=== PATIENT | female | born 1945 | race Caucasian/White ===

== ENCOUNTER 2017-07-29 05:38 | Inpatient (IN) ==
[2017-07-26 14:47] LABS: Apearance,Urine CLEAR (Clear); Bilirubin,Urine Negative (Negative); Blood, Urine Negative (Negative); Glucose,Urine (UA) Negative (Negative); Hyaline Casts,Urine 12 /LPF (0-3); Ketones,Urine Negative (Negative); Mucus,Urine Occasional /LPF (Occasional); Nitrite,Urine Negative (Negative); Protein,Urine Negative; RBC,Urine 2 /HPF (0-4); Urine Color Yellow (Yellow); Urine Specific Gravity 1.016 (1.001-1.035); Urine Urobilinogen < 2.0 EU/DL (0.2-1.0); WBC,Urine <1 /HPF (0-6)
[2017-07-26 14:51] LABS: PT Patient Result 10.5 SECS; Partial Thromboplastin Time 26.1 SECS (0-40)
[2017-07-29] MEDS ORDERED: VANCOMYCIN 1,000 MG VIAL ONE (05:59)
[2017-07-29] MEDS ORDERED: ceFAZolin 1,000 MG VIAL ONE (05:59)
[2017-07-29] MEDS ORDERED: ceFAZolin 1,000 MG in SYRINGE 1 EACH IV ONE (06:00)
[2017-07-29] MEDS ORDERED: VANCOMYCIN INJ 1,000 MG in SODIUM CHLORIDE 0.9% 250 ML IV ONE (06:00)
[2017-07-29] MEDS ORDERED: DIAZEPAM 5 MG TABLET PO STA (06:26)
[2017-07-29] MEDS ORDERED: DIAZEPAM 5 MG TABLET ONE (06:28)
[2017-07-29] MEDS ORDERED: LACTATED RINGERS 1,000 ML IV SCH (06:30)
[2017-07-29] MEDS ORDERED: BACITRACIN OINT 0.9 GM PACK TOP ONE (06:32)
[2017-07-29] MEDS ORDERED: BUPIVACAINE 0.5% 50 ML VIAL ONE (06:42)
[2017-07-29] MEDS ORDERED: TRANEXAMIC ACID 1,000 MG/10 ML VIAL ONE (06:42)
[2017-07-29] MEDS ORDERED: ROPIVACAINE 0.5% 30 ML VIAL ONE ×2 (08:22→09:23)
[2017-07-29] MEDS ORDERED: tiZANidine 4 MG TABLET PO PRN (08:25)
[2017-07-29] MEDS ORDERED: oxyCODONE IR 5 MG TABLET PO PRN ×2 (08:26)
[2017-07-29] MEDS ORDERED: MAGNESIUM HYDROXIDE SUSP 30 ML UDCUP PO PRN (08:26)
[2017-07-29] MEDS ORDERED: ONDANSETRON 4 MG/2 ML VIAL IV PRN ×2 (08:26→08:52)
[2017-07-29] MEDS ORDERED: MORPHINE 4 MG/1 ML VIAL IV PRN ×2 (08:26)
[2017-07-29] MEDS ORDERED: ZALEPLON 5 MG CAPSULE PO PRN (08:26)
[2017-07-29] MEDS ORDERED: diphenhydrAMINE CAP 25 MG CAPSULE PO PRN (08:26)
[2017-07-29] MEDS ORDERED: MORPHINE 10 MG/1 ML VIAL ONE (08:37)
[2017-07-29] MEDS ORDERED: ONDANSETRON 4 MG/2 ML VIAL ONE (08:37)
[2017-07-29] MEDS: MORPHINE 10 MG/1 ML VIAL IV PRN ×5 (08:40→09:10)
[2017-07-29] MEDS ORDERED: PROPOFOL 200 MG/20 ML VIAL IV ONE (08:54)
[2017-07-29] MEDS ORDERED: fentaNYL 100 MCG/2 ML VIAL ONE (08:55)
[2017-07-29] MEDS ORDERED: SEVOFLURANE 1 UNIT/15 MINUTE INH ONE (08:55)
[2017-07-29] MEDS ORDERED: MIDAZOLAM 2 MG/2 ML VIAL ONE (08:55)
[2017-07-29] MEDS ORDERED: ACETAMINOPHEN 1,000 MG/100 ML VIAL IV ONE (08:56)
[2017-07-29] MEDS ORDERED: GLYCOPYRROLATE 0.4 MG/2 ML VIAL ONE (08:56)
[2017-07-29] MEDS ORDERED: PHENYLEPHRINE 1 MG/10 ML SYRINGE IV ONE (08:56)
[2017-07-29] MEDS: DOCUSATE SODIUM 100 MG CAPSULE PO SCH ×2 (09:00→21:08)
[2017-07-29] MEDS: LACTATED RINGERS 1,000 ML IV SCH ×3 (09:00→23:54)
[2017-07-29] MEDS: KETOROLAC 30 MG/1 ML VIAL IV SCH ×4 (11:32→21:08)
[2017-07-29] MEDS ORDERED: hydrALAZINE 20 MG/1 ML VIAL IV PRN (11:46)
[2017-07-29] MEDS: GABAPENTIN 300 MG CAPSULE PO SCH ×3 (12:15→21:08)
[2017-07-29] MEDS: buPROPion SR 150 MG TABLET PO SCH ×2 (12:17→21:08)
[2017-07-29] MEDS: RALOXIFENE 60 MG TABLET PO SCH (12:17)
[2017-07-29] MEDS: CHOLECALCIFEROL 1,000 UNIT TABLET PO SCH (12:17)
[2017-07-29] MEDS: ACETAMINOPHEN 500 MG TABLET PO SCH ×2 (12:22→18:40)
[2017-07-29] MEDS: ceFAZolin 1,000 MG in SYRINGE 1 EACH IV SCH ×2 (12:22→21:10)
[2017-07-29] MEDS: CYANOCOBALAMIN 500 MCG TABLET PO SCH (17:49)
[2017-07-30] MEDS: ACETAMINOPHEN 500 MG TABLET PO SCH ×2 (00:45→05:32)
[2017-07-30] MEDS: FONDAPARINUX 2.5 MG/0.5 ML SYRINGE SUBCUT SCH (02:30)
[2017-07-30] MEDS: KETOROLAC 30 MG/1 ML VIAL IV SCH (02:30)
[2017-07-30 05:24] LABS: Basophils % 0.5 % (0.0-0.8); Eosinophils # 0.1 10*3/uL (0.0-0.87); Eosinophils % 2.2 % (0.00-10.9); Hematocrit 34.3 VOL% (35.7-47.0); Hemoglobin 11.7 GM/DL (12.0-16.0); Immature Granulocytes % 0.5 %; Immature Granulocytes Absolute 0.03 #; Lymphocytes # 0.7 10*3/uL (1.4-4.0); Lymphocytes % 12.2 % (21.3-54.2); Mean Corpuscular HGB Conc 34.1 GM/DL (32-36); Mean Corpuscular Hemoglobin 31 PG (27-34); Mean Corpuscular Volume 90.5 FL (87-102); Mean Platelet Volume 10.1 FL (9.6-12.0); Monocytes # 0.4 10*3/uL (0.11-0.8); Monocytes % 7.3 % (1.7-12.7); Neutrophils # 4.6 10*3/uL (1.4-7.4); Neutrophils % 77.3 % (38.7-73.9); Platelet Count 172 T/CUMM (130-400); Red Blood Count 3.79 MC/CUMM (3.8-5.5); Red Cell Distribution Width 14.3 % (9.3-17.3); White Blood Count 5.9 T/CUMM (4-12)
[2017-07-30 05:44] LABS: Calcium 7.7 MG/DL (8.5-10.1); Osmolality,Calculated 286.8 MOS/KG (273-304); Potassium 4.1 MMOL/L (3.5-5.1)
[2017-07-30] MEDS: CHOLECALCIFEROL 1,000 UNIT TABLET PO SCH (09:00)
[2017-07-30] MEDS: buPROPion SR 150 MG TABLET PO SCH ×2 (09:10→21:17)
[2017-07-30] MEDS: CYANOCOBALAMIN 500 MCG TABLET PO SCH (09:10)
[2017-07-30] MEDS: LISINOPRIL 20 MG TABLET PO SCH (09:10)
[2017-07-30] MEDS: GABAPENTIN 300 MG CAPSULE PO SCH ×3 (09:10→21:18)
[2017-07-30] MEDS: DOCUSATE SODIUM 100 MG CAPSULE PO SCH ×2 (09:11→21:18)
[2017-07-30] MEDS: RALOXIFENE 60 MG TABLET PO SCH (09:11)
[2017-07-30] MEDS: CELECOXIB 200 MG CAPSULE PO SCH (15:30)
[2017-07-31] MEDS: FONDAPARINUX 2.5 MG/0.5 ML SYRINGE SUBCUT SCH (03:30)
[2017-07-31 06:02] LABS: Basophils % 0.5 % (0.0-0.8); Eosinophils # 0.2 10*3/uL (0.0-0.87); Eosinophils % 2.7 % (0.00-10.9); Hematocrit 34.8 VOL% (35.7-47.0); Hemoglobin 11.8 GM/DL (12.0-16.0); Immature Granulocytes % 0.3 %; Immature Granulocytes Absolute 0.02 #; Lymphocytes # 0.6 10*3/uL (1.4-4.0); Lymphocytes % 9.3 % (21.3-54.2); Mean Corpuscular HGB Conc 33.9 GM/DL (32-36); Mean Corpuscular Hemoglobin 31 PG (27-34); Mean Corpuscular Volume 92.3 FL (87-102); Monocytes # 0.5 10*3/uL (0.11-0.8); Monocytes % 7.5 % (1.7-12.7); Neutrophils # 5.3 10*3/uL (1.4-7.4); Neutrophils % 79.7 % (38.7-73.9); Platelet Count 165 T/CUMM (130-400); Red Blood Count 3.77 MC/CUMM (3.8-5.5); Red Cell Distribution Width 14.6 % (9.3-17.3); White Blood Count 6.7 T/CUMM (4-12)
[2017-07-31] MEDS: buPROPion SR 150 MG TABLET PO SCH (09:19)
[2017-07-31] MEDS: CELECOXIB 200 MG CAPSULE PO SCH (09:19)
[2017-07-31] MEDS: RALOXIFENE 60 MG TABLET PO SCH (09:19)
[2017-07-31] MEDS: GABAPENTIN 300 MG CAPSULE PO SCH (09:20)
[2017-07-31] MEDS: CYANOCOBALAMIN 500 MCG TABLET PO SCH (09:30)
[2017-07-31] MEDS: CHOLECALCIFEROL 1,000 UNIT TABLET PO SCH (09:30)
[2017-07-31] MEDS: DOCUSATE SODIUM 100 MG CAPSULE PO SCH (09:30)
[2017-07-31] MEDS: LISINOPRIL 20 MG TABLET PO SCH (09:30)
[2017-07-31 10:55] VITALS: BP 152/78
== END 2017-07-31 12:20 | disposition home health service (06) | DRG 470 ==
LOC: N.OR 05:38 → N.SDSINP 06:05 → N.3E 09:50
PROVIDERS: ADMIT Orthopaedic Surgery; ATTEND Orthopaedic Surgery

== ENCOUNTER 2017-11-05 05:28 | Inpatient (IN) ==
[2017-10-30 11:19] LABS: Apearance,Urine CLEAR (Clear); Bilirubin,Urine Negative (Negative); Blood, Urine Negative (Negative); Glucose,Urine (UA) Negative (Negative); Ketones,Urine Negative (Negative); Mucus,Urine Occasional /LPF (Occasional); Nitrite,Urine Negative (Negative); Protein,Urine Negative; RBC,Urine 1 /HPF (0-4); Squamous Epithelial Cell,Urine Occasional /HPF (0-10); Urine Color Yellow (Yellow); Urine Specific Gravity 1.018 (1.001-1.035); Urine Urobilinogen < 2.0 EU/DL (0.2-1.0); WBC,Urine <1 /HPF (0-6)
[2017-10-30 11:40] LABS: Basophils # 0.1 10*3/uL (0.0-0.2); Basophils % 1.2 % (0.0-0.8); Eosinophils # 0.1 10*3/uL (0.0-0.87); Eosinophils % 2.1 % (0.00-10.9); Hematocrit 42.5 VOL% (35.7-47.0); Hemoglobin 14.4 GM/DL (12.0-16.0); Immature Granulocytes % 0.2 %; Immature Granulocytes Absolute 0.01 #; Lymphocytes # 0.9 10*3/uL (1.4-4.0); Lymphocytes % 14.9 % (21.3-54.2); Mean Corpuscular HGB Conc 33.9 GM/DL (32-36); Mean Corpuscular Hemoglobin 32 PG (27-34); Mean Corpuscular Volume 93.4 FL (87-102); Mean Platelet Volume 9.6 FL (9.6-12.0); Monocytes # 0.4 10*3/uL (0.11-0.8); Monocytes % 7.5 % (1.7-12.7); Neutrophils # 4.2 10*3/uL (1.4-7.4); Neutrophils % 74.1 % (38.7-73.9); Platelet Count 247 T/CUMM (130-400); Red Blood Count 4.55 MC/CUMM (3.8-5.5); Red Cell Distribution Width 14.3 % (9.3-17.3); White Blood Count 5.7 T/CUMM (4-12)
[2017-10-30 11:52] LABS: PT Patient Result 10.4 SECS; Partial Thromboplastin Time 25.4 SECS (0-40)
[2017-10-30 12:10] LABS: Alanine Aminotransferase 17 U/L (13-56); Albumin 3.6 G/DL (3.4-5.0); Alkaline Phosphatase 85 U/L (45-117); Aspartate Amino Transferase 15 U/L (0-37); Bilirubin,Total < 0.39 MG/DL (0.2-1.0); Blood Urea Nitrogen 23 MG/DL (7-18); Calcium 8.4 MG/DL (8.5-10.1); Glucose 86 MG/DL (74-106); Osmolality,Calculated 285.1 MOS/KG (273-304); Potassium 4.7 MMOL/L (3.5-5.1); Sodium 142 MMOL/L (136-145); Total Protein 7.1 G/DL (6.4-8.3)
[2017-11-05] MEDS ORDERED: VANCOMYCIN 1,000 MG VIAL ONE (05:59)
[2017-11-05] MEDS ORDERED: LACTATED RINGERS 1,000 ML IV SCH (06:00)
[2017-11-05] MEDS ORDERED: BUPIVACAINE SPINAL 0.75% 2 ML AMP SPINAL ONE (06:18)
[2017-11-05] MEDS ORDERED: TRANEXAMIC ACID 1,000 MG/10 ML VIAL ONE ×2 (06:18→09:00)
[2017-11-05] MEDS ORDERED: ROPIVACAINE 0.5% 30 ML VIAL ONE (06:29)
[2017-11-05] MEDS ORDERED: BACITRACIN OINT 0.9 GM PACK TOP ONE (07:02)
[2017-11-05] MEDS ORDERED: LORazepam 1 MG TABLET PO ONE (07:05)
[2017-11-05] MEDS ORDERED: FAMOTIDINE 20 MG TABLET PO ONE (07:06)
[2017-11-05] MEDS ORDERED: LORazepam 1 MG TABLET ONE (07:08)
[2017-11-05] MEDS ORDERED: FAMOTIDINE 20 MG TABLET ONE (07:08)
[2017-11-05] MEDS ORDERED: ceFAZolin 2,000 MG in PREMIX 1 EACH IV ONE (09:00)
[2017-11-05] MEDS ORDERED: VANCOMYCIN INJ 1,000 MG in SODIUM CHLORIDE 0.9% 250 ML IV ONE (09:00)
[2017-11-05] MEDS ORDERED: tiZANidine 4 MG TABLET PO PRN (09:53)
[2017-11-05] MEDS ORDERED: oxyCODONE IR 5 MG TABLET PO PRN ×2 (09:54)
[2017-11-05] MEDS ORDERED: MAGNESIUM HYDROXIDE SUSP 30 ML UDCUP PO PRN (09:54)
[2017-11-05] MEDS ORDERED: diphenhydrAMINE CAP 25 MG CAPSULE PO PRN (09:54)
[2017-11-05] MEDS ORDERED: ONDANSETRON 4 MG/2 ML VIAL IV PRN ×2 (09:54→10:30)
[2017-11-05] MEDS ORDERED: MORPHINE 4 MG/1 ML VIAL IV PRN ×2 (09:54)
[2017-11-05] MEDS ORDERED: ZALEPLON 5 MG CAPSULE PO PRN (09:54)
[2017-11-05] MEDS ORDERED: KETOROLAC 30 MG/1 ML VIAL IV SCH (10:00)
[2017-11-05] MEDS ORDERED: PROPOFOL 200 MG/20 ML VIAL IV ONE (10:10)
[2017-11-05] MEDS ORDERED: fentaNYL 100 MCG/2 ML VIAL ONE (10:11)
[2017-11-05] MEDS ORDERED: GLYCOPYRROLATE 0.4 MG/2 ML VIAL ONE (10:11)
[2017-11-05] MEDS ORDERED: MIDAZOLAM 2 MG/2 ML VIAL ONE (10:11)
[2017-11-05] MEDS ORDERED: NEOSTIGMINE 10 MG/10 ML VIAL ONE ×2 (10:11→10:12)
[2017-11-05] MEDS ORDERED: SEVOFLURANE 1 UNIT/15 MINUTE INH ONE (10:11)
[2017-11-05] MEDS ORDERED: SUCCINYLCHOLINE 200 MG/10 ML VIAL ONE (10:12)
[2017-11-05] MEDS ORDERED: ACETAMINOPHEN 1,000 MG/100 ML VIAL IV ONE (10:12)
[2017-11-05] MEDS ORDERED: ROCURONIUM 100 MG/10 ML VIAL IV ONE (10:12)
[2017-11-05] MEDS ORDERED: HYDROmorphone 2 MG/1 ML VIAL ONE (10:31)
[2017-11-05] MEDS ORDERED: ONDANSETRON 4 MG/2 ML VIAL ONE (10:32)
[2017-11-05] MEDS: HYDROmorphone 2 MG/1 ML VIAL IV PRN ×4 (10:34→11:02)
[2017-11-05] MEDS: LACTATED RINGERS 1,000 ML IV SCH ×2 (11:45→19:49)
[2017-11-05] MEDS: KETOROLAC 30 MG/1 ML VIAL IV SCH ×3 (12:36→23:36)
[2017-11-05] MEDS: ACETAMINOPHEN 500 MG TABLET PO SCH ×2 (15:00→21:37)
[2017-11-05] MEDS: GABAPENTIN 300 MG CAPSULE PO SCH ×2 (15:00→21:37)
[2017-11-05] MEDS: ceFAZolin 2,000 MG in PREMIX 1 EACH IV SCH ×2 (15:02→21:38)
[2017-11-05] MEDS: buPROPion SR 150 MG TABLET PO SCH (21:37)
[2017-11-05] MEDS: LISINOPRIL 20 MG TABLET PO SCH (21:37)
[2017-11-05] MEDS: DOCUSATE SODIUM 100 MG CAPSULE PO SCH (21:38)
[2017-11-06] MEDS: ACETAMINOPHEN 500 MG TABLET PO SCH ×2 (02:07→08:51)
[2017-11-06] MEDS: LACTATED RINGERS 1,000 ML IV SCH (04:27)
[2017-11-06 06:29] LABS: Basophils % 0.4 % (0.0-0.8); Eosinophils # 0.1 10*3/uL (0.0-0.87); Eosinophils % 1.7 % (0.00-10.9); Hematocrit 34.2 VOL% (35.7-47.0); Hemoglobin 11.7 GM/DL (12.0-16.0); Immature Granulocytes % 0.4 %; Immature Granulocytes Absolute 0.02 #; Lymphocytes # 0.3 10*3/uL (1.4-4.0); Lymphocytes % 6.4 % (21.3-54.2); Mean Corpuscular HGB Conc 34.2 GM/DL (32-36); Mean Corpuscular Hemoglobin 31 PG (27-34); Mean Corpuscular Volume 91.2 FL (87-102); Mean Platelet Volume 10.5 FL (9.6-12.0); Monocytes # 0.2 10*3/uL (0.11-0.8); Monocytes % 4.9 % (1.7-12.7); Neutrophils % 86.2 % (38.7-73.9); Platelet Count 189 T/CUMM (130-400); Red Blood Count 3.75 MC/CUMM (3.8-5.5); Red Cell Distribution Width 14.1 % (9.3-17.3); White Blood Count 4.7 T/CUMM (4-12)
[2017-11-06] MEDS: FONDAPARINUX 2.5 MG/0.5 ML SYRINGE SUBCUT SCH (06:37)
[2017-11-06] MEDS: KETOROLAC 30 MG/1 ML VIAL IV SCH (06:39)
[2017-11-06 06:52] LABS: Calcium 7.9 MG/DL (8.5-10.1); Osmolality,Calculated 280.3 MOS/KG (273-304); Potassium 3.8 MMOL/L (3.5-5.1)
[2017-11-06] MEDS: CYANOCOBALAMIN 500 MCG TABLET PO SCH (08:53)
[2017-11-06] MEDS: RALOXIFENE 60 MG TABLET PO SCH (08:53)
[2017-11-06] MEDS: CHOLECALCIFEROL 1,000 UNIT TABLET PO SCH (09:06)
[2017-11-06] MEDS: buPROPion SR 150 MG TABLET PO SCH ×2 (09:07→21:04)
[2017-11-06] MEDS: GABAPENTIN 300 MG CAPSULE PO SCH ×3 (09:07→21:04)
[2017-11-06] MEDS: DOCUSATE SODIUM 100 MG CAPSULE PO SCH ×2 (09:07→21:03)
[2017-11-06] MEDS: CELECOXIB 200 MG CAPSULE PO SCH (16:55)
[2017-11-06] MEDS: LISINOPRIL 20 MG TABLET PO SCH (21:04)
[2017-11-07 04:00] LABS: Basophils % 0.6 % (0.0-0.8); Eosinophils # 0.2 10*3/uL (0.0-0.87); Eosinophils % 3.3 % (0.00-10.9); Hemoglobin 11.1 GM/DL (12.0-16.0); Immature Granulocytes % 0.2 %; Immature Granulocytes Absolute 0.01 #; Lymphocytes # 0.4 10*3/uL (1.4-4.0); Lymphocytes % 7.6 % (21.3-54.2); Mean Corpuscular HGB Conc 33.6 GM/DL (32-36); Mean Corpuscular Hemoglobin 31 PG (27-34); Mean Corpuscular Volume 93.2 FL (87-102); Mean Platelet Volume 10.3 FL (9.6-12.0); Monocytes # 0.4 10*3/uL (0.11-0.8); Monocytes % 7.8 % (1.7-12.7); Neutrophils # 4.2 10*3/uL (1.4-7.4); Neutrophils % 80.5 % (38.7-73.9); Platelet Count 176 T/CUMM (130-400); Red Blood Count 3.54 MC/CUMM (3.8-5.5); Red Cell Distribution Width 14.2 % (9.3-17.3); White Blood Count 5.2 T/CUMM (4-12)
[2017-11-07] MEDS: FONDAPARINUX 2.5 MG/0.5 ML SYRINGE SUBCUT SCH (05:20)
[2017-11-07] MEDS: buPROPion SR 150 MG TABLET PO SCH (09:32)
[2017-11-07] MEDS: DOCUSATE SODIUM 100 MG CAPSULE PO SCH (09:32)
[2017-11-07] MEDS: RALOXIFENE 60 MG TABLET PO SCH (09:32)
[2017-11-07] MEDS: CELECOXIB 200 MG CAPSULE PO SCH (09:32)
[2017-11-07] MEDS: GABAPENTIN 300 MG CAPSULE PO SCH (09:32)
[2017-11-07] MEDS: CHOLECALCIFEROL 1,000 UNIT TABLET PO SCH (09:32)
[2017-11-07] MEDS: CYANOCOBALAMIN 500 MCG TABLET PO SCH (09:35)
[2017-11-07 12:01] VITALS: BP 142/62
== END 2017-11-07 12:45 | disposition home health service (06) | DRG 470 ==
LOC: N.OR 05:28 → N.SDSINP 05:30 → N.OR 08:33 → N.3E 09:54
PROVIDERS: ADMIT Orthopaedic Surgery; ATTEND Orthopaedic Surgery